=== PATIENT | male | born 1980 ===

== ENCOUNTER → 2022-07-25 09:20 | Outpatient (CLI) | payer OTHER, SELFPAY ==
--- NOTE | 2022-07-25 | DI.MRI.S_ITS ---
PROCEDURE: MR LUMBAR SPINE WO CON INDICATIONS: Radiculopathy, lumbar region TECHNIQUE: Noncontrast sagittal T1 spin echo and T2 fast echo, sagittal STIR, and T2 fast spin echo through the lumbar spine. In cases with scoliosis, additional coronal T2 fast spin echo may be performed. COMPARISON: [facility], MR, MR LUMBAR SPINE WITHOUT CONTRAST, 08/06/2021, 18:13. FINDINGS: Image quality: Excellent. Alignment and Curvature: Posterior fusion is present at L5-S1. There is good anatomic alignment. Bone Marrow: Marrow is of normal overall signal. No acute vertebral body compression fractures. Spinal Cord: Conus medullaris terminates at the L1-2 level. Visualized cord demonstrates normal signal and size. Paraspinous Soft Tissues: No paravertebral masses. T12-L1: No disc bulge, spinal stenosis or foraminal narrowing. L1-L2: No disc bulge, spinal stenosis or foraminal narrowing. Mild epidural lipomatosis is present. No interval change. L2-L3: Minimal disc bulge without spinal stenosis or foraminal narrowing. Epidural lipomatosis is present. L3-L4: No disc bulge, spinal stenosis or foraminal narrowing. Mild epidural lipomatosis is present. No interval change. L4-L5: Increased signal posteriorly within the disc consistent with annular fissure is present. No disc bulge, spinal stenosis or foraminal narrowing. No interval change. L5-S1: Interval postsurgical changes. Previous disc bulge is less prominent. There is [id number] bilateral foraminal narrowing slightly less prominent. IMPRESSION: Interval posterior fusion at L5-S1 with slightly less prominent appearance of bilateral foraminal narrowing at this level. Remainder of exam is stable. Dictated by: Emily Fishman M.D. on 07/25/2022 at 13:55 Approved by: Emily Fishman M.D. on 07/25/2022 at 13:59
== END ==
PROVIDERS: PCP Student in an Organized Health Care Education/Training Program; Referring Provider Student in an Organized Health Care Education/Training Program; Visit Provider Student in an Organized Health Care Education/Training Program
DX: M54.16 Radiculopathy, lumbar region (principal); Z98.1 Arthrodesis status; M48.061 Spinal stenosis, lumbar region without neurogenic claudication
CPT/HCPCS: 72148

== ENCOUNTER → 2022-11-07 14:17 | Outpatient (CLI) | payer OTHER, SELFPAY | PROVIDERS: Family Provider Student in an Organized Health Care Education/Training Program; PCP Student in an Organized Health Care Education/Training Program; Referring Provider Nurse Practitioner Family; Visit Provider Nurse Practitioner Family | DX: M54.16 Radiculopathy, lumbar region (principal) | CPT/HCPCS: 95886; 95910 ==

== ENCOUNTER → 2023-02-07 19:44 | Outpatient (CLI) | payer OTHER, SELFPAY ==
--- NOTE | 2023-02-07 | DI.MRI.S_ITS ---
P pole the ROCEDURE: MR LUMBAR SPINE WO CON INDICATIONS: Radiculopathy, lumbar region TECHNIQUE: Noncontrast sagittal T1 spin echo and T2 fast echo, sagittal STIR, and T2 fast spin echo through the lumbar spine. In cases with scoliosis, additional coronal T2 fast spin echo may be performed. COMPARISON: [facility], MR, MR LUMBAR SPINE WITH/WITHOUT CONTRAST, 08/08/2022, 7:12. [facility], CT, CT LUMBAR SPINE WITH CONTRAST, 08/08/2022, 0:47. [facility], MR, MR LUMBAR SPINE WO CON, 07/25/2022, 10:16. FINDINGS: Image quality: Excellent. Alignment and Curvature: There is normal bony alignment. Remote right hemilaminectomy and partial facetectomy at L5-S1 with posterior lateral naveen and pedicle screw fixation and interbody spacer placement. Bone Marrow: Marrow is of normal overall signal. No acute vertebral body compression fractures. Spinal Cord: Conus medullaris terminates at the L1-L2 level. Visualized cord demonstrates normal signal and size. Paraspinous Soft Tissues: No paravertebral masses. T12-L1: Normal appearance. L1-L2: Normal appearance. L2-L3: Normal appearance. L3-L4: Normal appearance. L4-L5: Mild facet hypertrophy. No canal stenosis or foraminal stenosis. L5-S1: Posterior decompression. Posterior lateral fusion and interbody spacer. No canal stenosis. No significant foraminal stenosis. IMPRESSION: 1. Expected appearance of postoperative level. No canal stenosis or significant foraminal stenosis. 2. Mild facet hypertrophy at L4-L5. 3. Otherwise unremarkable. No canal stenosis or foraminal stenosis. Dictated by: Jasen Gamboa M.D. on 02/10/2023 at 9:35 Approved by: Jasen Gamboa M.D. on 02/10/2023 at 9:41
== END ==
PROVIDERS: Family Provider Student in an Organized Health Care Education/Training Program; PCP Student in an Organized Health Care Education/Training Program; Referring Provider Orthopaedic Surgery; Visit Provider Orthopaedic Surgery
DX: M47.26 Other spondylosis with radiculopathy, lumbar region (principal); Z98.1 Arthrodesis status
CPT/HCPCS: 72148

== ENCOUNTER 2023-06-08 04:54 | Emergency (ER) | payer OTHER, SELFPAY ==
[2023-06-08] VITALS (9 sets, daily range): BP systolic 106–144; BP diastolic 72–98; PULSE 69–83; RESP 16; TEMP 36.6; O2SAT 97–99
--- NOTE | 2023-06-08 05:22 | DI.CT.S_ITS ---
PROCEDURE: CT HEAD/BRAIN WO CON INDICATIONS: debilitating migraine, htn TECHNIQUE: Noncontrast 4.5 mm thick angled axial sections acquired from the foramen magnum to the vertex, with coronal and sagittal reformats. For radiation dose reduction, the following was used: automated exposure control, adjustment of mA and/or kV according to patient size. COMPARISON: None. FINDINGS: Image quality: Diagnostic. CSF spaces: Basal cisterns are patent. No extra-axial fluid collections. Ventricles are normal in size and shape. Brain: No midline shift. No intracranial masses or hemorrhage. [place]-white matter interface is normal. Skull and face: Calvarium and visualized facial bones are intact, without suspicious lesions. Sinuses: Visualized sinuses and mastoids are clear. IMPRESSION: No acute intracranial pathology. No significant discrepancy with the shift mechanic radiology preliminary report. Dictated by: Tristen Buitrago M.D. on 06/08/2023 at 7:28 Approved by: Tristen Buitrago M.D. on 06/08/2023 at 7:29
--- NOTE | 2023-06-08 05:25 | ED.GENADULT ---
HPI - General Adult <Taylor Bird MD - Last Filed: 06/09/23 01:24> General Chief complaint: Hypertension Stated complaint: Dizzy, confused, weak, High BP Time Seen by Provider: 06/08/23 05:04 Source: patient Mode of arrival: Ambulatory History of Present Illness HPI narrative: 42-year-old male with history of prediabetes presents by private vehicle from home for lightheadedness and elevated blood pressure. Patient states ?I do not feel well?. He states that he had a horrible migraine earlier last night and went to bed. When he woke up his headache was better but the lightheadedness persisted. His significant other told him to measures blood pressure and it was high on his wrist cuff. Patient states that he saw his primary care doctor recently for elevated blood pressures but his doctor did not put him on any blood pressure medications because he is a shithead. Patient denies chest pain, shortness of breath, vertigo, vision changes, worst headache of life Related Data Previous Rx's Medication Instructions Recorded amlodipine 5 mg tablet 5 mg PO DAILY #30 tabs 06/08/23 Allergies Allergy/AdvReac Type Severity Reaction Status Date / Time Latex, Natural Rubber Allergy Verified 06/08/23 05:25 Review of Systems <Taylor Bird MD - Last Filed: 06/09/23 01:24> Review of Systems Narrative: See HPI Exam <Taylor Bird MD - Last Filed: 06/09/23 01:24> Initial Vital Signs Initial Vital Signs: Vital Signs Pulse Rate 79 06/08/23 05:10 Pulse Oximetry 98 06/08/23 05:10 Const: Awake, alert, eyes closed, no acute distress Cardiac: regular rate, regular rhythm RESP: unlabored, clear bilaterally, no wheezing GI: Soft, nontender, nondistended Skin: Warm, Dry, intact, no rashes Neuro: AO x3, CN II-XII grossly intact, moves all extremities <Taylor Roberson DO - Last Filed: 06/08/23 09:29> Initial Vital Signs Initial Vital Signs: Vital Signs Pulse Rate 79 06/08/23 05:10 Pulse Oximetry 98 06/08/23 05:10 Course <Taylor Bird MD - Last Filed: 06/09/23 01:24> Orders Ordered: Discontinued Medications Diphenhydramine HCl (Diphenhydramine 50 Mg/Ml Vial) 50 mg IV NOW ONE Stop: 06/08/23 05:22 Last Admin: 06/08/23 05:32 Dose: 50 mg Documented By: HUAN Sodium Chloride (Normal Saline 0.9%) 1,000 mls @ 1,000 mls/hr IV BOLUS ONE Stop: 06/08/23 06:20 Last Infusion: 06/08/23 06:24 Dose: Infused Documented By: Admin: 06/08/23 05:32 Dose: 1,000 mls/hr Documented By: HUAN Metoclopramide HCl (Metoclopramide 10 Mg/2 Ml Inj) 10 mg IV NOW ONE Stop: 06/08/23 05:22 Last Admin: 06/08/23 05:32 Dose: 10 mg Documented By: HUAN Vital Signs Vital signs: Vital Signs - 8 hr 06/08/23 05:10 06/08/23 05:11 06/08/23 05:30 Temperature 97.8 F Pulse Rate 79 83 82 Respiratory Rate 16 Blood Pressure 144/98 H Pulse Oximetry 98 98 99 Oxygen Delivery Method Room Air 06/08/23 05:30 06/08/23 06:02 06/08/23 06:59 Temperature Pulse Rate 72 70 Respiratory Rate Blood Pressure 132/95 H 110/72 Pulse Oximetry 97 97 Oxygen Delivery Method 06/08/23 07:00 06/08/23 07:00 06/08/23 07:30 Temperature Pulse Rate 72 Respiratory Rate Blood Pressure 110/72 106/72 Pulse Oximetry 97 Oxygen Delivery Method 06/08/23 07:30 06/08/23 07:34 06/08/23 07:39 Temperature Pulse Rate 69 72 Respiratory Rate 16 Blood Pressure Pulse Oximetry 97 99 Oxygen Delivery Method <Taylor Roberson DO - Last Filed: 06/08/23 09:29> Orders Ordered: Discontinued Medications Diphenhydramine HCl (Diphenhydramine 50 Mg/Ml Vial) 50 mg IV NOW ONE Stop: 06/08/23 05:22 Last Admin: 06/08/23 05:32 Dose: 50 mg Documented By: HUAN Sodium Chloride (Normal Saline 0.9%) 1,000 mls @ 1,000 mls/hr IV BOLUS ONE Stop: 06/08/23 06:20 Last Infusion: 06/08/23 06:24 Dose: Infused Documented By: Admin: 06/08/23 05:32 Dose: 1,000 mls/hr Documented By: HUAN Metoclopramide HCl (Metoclopramide 10 Mg/2 Ml Inj) 10 mg IV NOW ONE Stop: 06/08/23 05:22 Last Admin: 06/08/23 05:32 Dose: 10 mg Documented By: HUAN Vital Signs Vital signs: Vital Signs - 8 hr 06/08/23 05:10 06/08/23 05:11 06/08/23 05:30 Temperature 97.8 F Pulse Rate 79 83 82 Respiratory Rate 16 Blood Pressure 144/98 H Pulse Oximetry 98 98 99 Oxygen Delivery Method Room Air 06/08/23 05:30 06/08/23 06:02 06/08/23 06:59 Temperature Pulse Rate 72 70 Respiratory Rate Blood Pressure 132/95 H 110/72 Pulse Oximetry 97 97 Oxygen Delivery Method 06/08/23 07:00 06/08/23 07:00 06/08/23 07:30 Temperature Pulse Rate 72 Respiratory Rate Blood Pressure 110/72 106/72 Pulse Oximetry 97 Oxygen Delivery Method 06/08/23 07:30 06/08/23 07:34 06/08/23 07:39 Temperature Pulse Rate 69 72 Respiratory Rate 16 Blood Pressure Pulse Oximetry 97 99 Oxygen Delivery Method Medical Decision Making <Taylor Bird MD - Last Filed: 06/09/23 01:24> Lab Data 06/08/23 05:30 06/08/23 06:50 Labs: Lab Results 06/08/23 06/08/23 06/08/23 Range/Units 05:30 06:00 06:50 WBC 6.0 (4.5-11.0) X10^3/uL RBC 5.32 (4.5-5.9) X10^6/uL Hgb 14.7 (13.5-17.5) g/dL Hct 45.0 (41-53) % MCV 84.4 (80-100) fL MCH 27.5 (26-34) PG MCHC 32.6 (30-36) % RDW 14.1 (11.6-14.8) % Plt Count 164 (150-400) X10^3/uL Neut % (Auto) 48.1 L (50-75) % Lymph % (Auto) 37.2 (25-40) % [place] % (Auto) 9.6 (3-14) % Eos % (Auto) 4.1 H (2-4) % Baso % (Auto) 1.0 (0-2) % Neut # (Auto) 2900 (7624-9563) /uL Lymph # (Auto) 2200 (1501-9243) /uL [place] # (Auto) 600 (0-900) /uL Eos # (Auto) 200 (0-450) /uL Baso # (Auto) 100 (0-100) /uL Sodium 140 (137-145) mmol/L Potassium 3.7 (3.4-5.1) mmol/L Chloride 112 H (98-107) mmol/L Carbon Dioxide 25 (22-32) mmol/L BUN 15 (9-20) mg/dL Creatinine 1.13 (0.66-1.25) mg/dL Estimated GFR > 60 (>60) mL/min BUN/Creatinine Ratio 13.3 (6-22) Glucose 92 (70-100) mg/dL Calcium 8.5 (8.4-10.2) mg/dL Magnesium 2.1 (1.6-2.3) mg/dL Total Bilirubin 0.3 (0.2-1.3) mg/dL AST 27 (17-59) IU/L ALT 53 H (<50) IU/L Alkaline Phosphatase 100 (38-126) U/L Total Protein 6.0 L (6.3-8.2) g/dL Albumin 3.6 (3.5-5.0) g/dL Globulin 2.4 (1.7-4.1) g/dL Albumin/Globulin Ratio 1.5 (1.0-2.8) Urine Color Yellow Urine Appearance Clear Urine pH 5.0 (4.5-8.0) Ur Specific [place] >=1.030 H (1.000-1.035) Urine Protein Negative (Negative) Urine Glucose (UA) Negative (Negative) g/dL Urine Ketones Trace H (NEGATIVE) Urine Occult Blood Negative (Negative) Urine Nitrate Negative (Negative) Urine Bilirubin Negative (NEGATIVE) Urine Urobilinogen 1.0 (0.2) E.U./dL Ur Leukocyte Esterase Negative (NEGATIVE) Urine RBC None seen (0-5/HPF) Urine WBC None seen (0-5/HPF) Ur Squamous Epith Cells 0-1 /hpf (0-5/HPF) Urine Bacteria None seen (None) Urine Mucus 1+ H (Negative) Ur Culture Indicated? Cult not indicated Vol Urine Centrifuged 10ml (spun) MDM Narrative Medical decision making narrative: Hypertension and headache. Neurologically intact. Since this is a new headache for the patient a CT scan will be ordered. Due to hypertension blood work will be ordered to assess for end-organ damage. Headache cocktail ordered. CT imaging negative for acute findings. Patient was receiving headache cocktail. Laboratory work pending. Care of patient is signed out to Dr. Roberson at [id number] Karol 06/18/2023: 42-year-old male with a history of migraines, reported untreated hypertension who presents with headache. Patient states has history of migraines. Patient was signed out to myself by Dr. Bird. Patient seen and evaluated independently had head CT which was negative for acute change. Labs show white count of 6 hemoglobin of 14 platelets of 164, chemistries show a chloride of 112, ALT of 53 with otherwise normal electrolytes renal function and LFTs. UA shows trace ketones no signs of infection. EKG shows sinus rhythm, no acute ST changes appreciated. Rate of 93 UT 162 QRS of 92 QTC of 482. Patient received fluids, Reglan and on recheck patient is feeling much improved. He would like to return home. He did ask for a note in his chart that states that the blood pressure cuff here did correlate with his home cuff which he brought in. Per nursing it did correlate. He also had a script sent by Dr. Bird for his amlodipine. <Taylor Roberson, DO - Last Filed: 06/08/23 09:29> Lab Data Labs: Lab Results 06/08/23 06/08/23 06/08/23 Range/Units 05:30 06:00 06:50 WBC 6.0 (4.5-11.0) X10^3/uL RBC 5.32 (4.5-5.9) X10^6/uL Hgb 14.7 (13.5-17.5) g/dL Hct 45.0 (41-53) % MCV 84.4 (80-100) fL MCH 27.5 (26-34) PG MCHC 32.6 (30-36) % RDW 14.1 (11.6-14.8) % Plt Count 164 (150-400) X10^3/uL Neut % (Auto) 48.1 L (50-75) % Lymph % (Auto) 37.2 (25-40) % [place] % (Auto) 9.6 (3-14) % Eos % (Auto) 4.1 H (2-4) % Baso % (Auto) 1.0 (0-2) % Neut # (Auto) 2900 (3669-0529) /uL Lymph # (Auto) 2200 (9992-9378) /uL [place] # (Auto) 600 (0-900) /uL Eos # (Auto) 200 (0-450) /uL Baso # (Auto) 100 (0-100) /uL Sodium 140 (137-145) mmol/L Potassium 3.7 (3.4-5.1) mmol/L Chloride 112 H (98-107) mmol/L Carbon Dioxide 25 (22-32) mmol/L BUN 15 (9-20) mg/dL Creatinine 1.13 (0.66-1.25) mg/dL Estimated GFR > 60 (>60) mL/min BUN/Creatinine Ratio 13.3 (6-22) Glucose 92 (70-100) mg/dL Calcium 8.5 (8.4-10.2) mg/dL Magnesium 2.1 (1.6-2.3) mg/dL Total Bilirubin 0.3 (0.2-1.3) mg/dL AST 27 (17-59) IU/L ALT 53 H (<50) IU/L Alkaline Phosphatase 100 (38-126) U/L Total Protein 6.0 L (6.3-8.2) g/dL Albumin 3.6 (3.5-5.0) g/dL Globulin 2.4 (1.7-4.1) g/dL Albumin/Globulin Ratio 1.5 (1.0-2.8) Urine Color Yellow Urine Appearance Clear Urine pH 5.0 (4.5-8.0) Ur Specific [place] >=1.030 H (1.000-1.035) Urine Protein Negative (Negative) Urine Glucose (UA) Negative (Negative) g/dL Urine Ketones Trace H (NEGATIVE) Urine Occult Blood Negative (Negative) Urine Nitrate Negative (Negative) Urine Bilirubin Negative (NEGATIVE) Urine Urobilinogen 1.0 (0.2) E.U./dL Ur Leukocyte Esterase Negative (NEGATIVE) Urine RBC None seen (0-5/HPF) Urine WBC None seen (0-5/HPF) Ur Squamous Epith Cells 0-1 /hpf (0-5/HPF) Urine Bacteria None seen (None) Urine Mucus 1+ H (Negative) Ur Culture Indicated? Cult not indicated Vol Urine Centrifuged 10ml (spun) MDM Narrative Medical decision making narrative: Karol 06/18/2023: 42-year-old male with a history of migraines, reported untreated hypertension who presents with headache. Patient states has history of migraines. Patient was signed out to myself by Dr. Bird. Patient seen and evaluated independently had head CT which was negative for acute change. Labs show white count of 6 hemoglobin of 14 platelets of 164, chemistries show a chloride of 112, ALT of 53 with otherwise normal electrolytes renal function and LFTs. UA shows trace ketones no signs of infection. EKG shows sinus rhythm, no acute ST changes appreciated. Rate of 93 UT 162 QRS of 92 QTC of 482. Patient received fluids, Reglan and on recheck patient is feeling much improved. He would like to return home. He did ask for a note in his chart that states that the blood pressure cuff here did correlate with his home cuff which he brought in. Per nursing it did correlate. He also had a script sent by Dr. Bird for his amlodipine. Discharge Plan Departure Patient Disposition: Home Clinical Impression: Hypertension Instructions: DI for High Blood Pressure Activity Restrictions/Additional Instructions: Follow up with primary care, additional options has been provided. Nursing did correlate your home blood pressure cuff with our blood pressure machine and the numbers did correlate. Prescription for amlodipine has been included. You will need to follow up for refills. Prescription sent to [facility] in [place]. Please return for fevers, rapidly worsening symptoms, passing out, sudden vision changes, persistent vomiting, new numbness, tingling, weakness, difficulty with movement or other new or concerning changes. Prescriptions: New amlodipine 5 mg tablet 5 mg PO DAILY Qty: 30 0RF Referrals: Natalio Bryan DO [Primary Care Provider] - Stand Alone Forms: Patient Portal/API
[2023-06-08] MEDS: METOCLOPRAMIDE 10 MG/2 ML INJ IV (05:32)
[2023-06-08] MEDS: SODIUM CHLORIDE 0.9% 1,000 ML 1000 ML IV (05:32)
[2023-06-08] MEDS: diphenhydrAMINE 50 MG/ML VIAL IV (05:32)
[2023-06-08 05:46] LABS: Add Manual Diff / Slide Review NO; Basophils Absolute Auto 100 /uL (0-100); Eosinophils Absolute Auto 200 /uL (0-450); Eosinophils Percent Auto 4.1 % (2-4); Hemoglobin 14.7 g/dL (13.5-17.5); Lymphocytes Absolute Auto 2200 /uL (1100-4500); Lymphocytes Percent Auto 37.2 % (25-40); Mean Corpuscular HGB Conc 32.6 % (30-36); Mean Corpuscular Hemoglobin 27.5 PG (26-34); Mean Corpuscular Volume 84.4 fL (80-100); Monocytes Absolute Auto 600 /uL (0-900); Monocytes Percent Auto 9.6 % (3-14); Neutrophils Absolute Auto 2900 /uL (1500-7000); Neutrophils Percent Auto 48.1 % (50-75); Platelet Count 164 X10^3/uL (150-400); Red Blood Cell Count 5.32 X10^6/uL (4.5-5.9); Red Cell Distribution Width 14.1 % (11.6-14.8)
[2023-06-08 06:22] LABS: Appearance Urine UA CLEAR; Bilirubin Urine UA NEGATIVE (NEGATIVE); Color Urine UA YELLOW; Glucose Urine UA NEGATIVE (Negative); Ketones Urine UA TRACE (NEGATIVE); Leukocyte Esterase Urine UA NEGATIVE (NEGATIVE); Nitrite Urine UA NEGATIVE (Negative); Occult Blood Urine UA NEGATIVE (Negative); Protein Urine UA NEGATIVE (Negative); Specific Gravity Urine UA >=1.030 (1.000-1.035)
[2023-06-08 06:30] LABS: Bacteria Urine None Seen; Culture Indicated Urine Cult Not Indicated; Mucus Urine 1+ (Negative); RBC Urine None Seen (0-5/HPF); Squamous Epithelial Cell Urine 0-1 /HPF (0-5/HPF); Urine Volume 10mL (spun); WBC Urine None Seen (0-5/HPF)
[2023-06-08 07:17] LABS: Alanine Aminotransferase 53 IU/L (<50); Albumin 3.6 g/dL (3.5-5.0); Albumin Globulin Ratio 1.5 (1.0-2.8); Alkaline Phosphatase 100 U/L (38-126); Aspartate Aminotransferase 27 IU/L (17-59); BUN Creatinine Ratio 13.3 (6-22); Bilirubin Total 0.3 mg/dL (0.2-1.3); Blood Urea Nitrogen 15 mg/dL (9-20); Calcium 8.5 mg/dL (8.4-10.2); Carbon Dioxide 25 mmol/L (22-32); Chloride 112 mmol/L (98-107); Estimated Glomerular Filt Rate > 60 mL/min (>60); Globulin 2.4 g/dL (1.7-4.1); Glucose 92 mg/dL (70-100); HEMOLYSIS 15 (0-50); Magnesium 2.1 mg/dL (1.6-2.3); Potassium 3.7 mmol/L (3.4-5.1); Sodium 140 mmol/L (137-145)
== END 2023-06-08 07:41 | disposition home or self-care (01) ==
PROVIDERS: Emergency Medicine; Emergency Provider Emergency Medicine; Family Provider Student in an Organized Health Care Education/Training Program; PCP Student in an Organized Health Care Education/Training Program
DX: I10 Essential (primary) hypertension (principal); R07.9 Chest pain, unspecified
CPT/HCPCS: 36415; 70450; 80053; 81001; 83735; 85025; 93005; 96361; 96374; 96375; 99284; J1200; J2765

== ENCOUNTER 2023-06-25 11:54 | Emergency (ER) | payer OTHER, SELFPAY ==
--- NOTE | 2023-06-25 | DI.MRI.S_ITS ---
PROCEDURE: MR LUMBAR SPINE WO CON INDICATIONS: BACK PAIN TECHNIQUE: Noncontrast sagittal T1 spin echo and T2 fast echo, sagittal STIR, and T2 fast spin echo through the lumbar spine. In cases with scoliosis, additional coronal T2 fast spin echo may be performed. COMPARISON: [facility], CT, CT ABDOMEN PELVIS WITH CONTRAST, 08/15/2022, 13:12. [facility], MR, MR LUMBAR SPINE WITH/WITHOUT CONTRAST, 08/08/2022, 7:12. [facility], CT, CT LUMBAR SPINE WITH CONTRAST, 08/08/2022, 0:47. [facility], CR, XR LUMBAR SPINE 2 OR 3 VIEWS, 08/06/2022, 10:11. [facility], MR, MR LUMBAR SPINE WO CON, 07/25/2022, 10:16. [facility], MR, MR LUMBAR SPINE WO CON, 02/07/2023, 20:15. FINDINGS: Image quality: There is artifact associated with the metallic hardware. This examination is limited by involuntary motion artifact. Alignment and Curvature: There is normal bony alignment. Bone Marrow: Marrow is of normal overall signal. No acute vertebral body compression fractures. Spinal Cord: Conus medullaris terminates at the L1 level. Visualized cord demonstrates normal signal and size. Paraspinous Soft Tissues: No paravertebral masses. T12-L1: Normal appearance. L1-L2: Normal appearance. L2-L3: Normal appearance. L3-L4: Normal appearance. L4-L5: The disc height and disk signal are well-preserved. Mild generalized disc bulge is seen. There is a superimposed central disc protrusion. Mild to moderate facet hypertrophy is seen. Mild to moderate bilateral neural foraminal narrowing is seen. No central canal narrowing is seen. Are similar L5-S1: Postoperative changes are seen at this level, with bilateral pedicle screws and vertical fixation rods. There is a disc spacer seen at this level. Moderate generalized disc bulge is seen. There is moderate right-sided and no left-sided neural foraminal narrowing. No central canal narrowing is seen. IMPRESSION: No acute abnormality is seen. Stable MRI demonstrating lower lumbar spine postoperative and degenerative change. Dictated by: Kit Turner M.D. on 06/25/2023 at 17:35 Approved by: Kit Turner M.D. on 06/25/2023 at 17:38
[2023-06-25 11:59] VITALS: BP 146/81; PULSE 99; RESP 18; TEMP 36.9; O2SAT 96; BMI 28.1
[2023-06-25] MEDS: KETOROLAC 30 MG/ML VIAL IM (17:01)
[2023-06-25 17:03] VITALS: BP 122/73; PULSE 71; RESP 16; O2SAT 98
--- NOTE | 2023-06-25 17:37 | ED_ITS ---
HPI - Back Pain/Injury General Chief Complaint: Back Pain/Injury Stated Complaint: back pain Time Seen by Provider: 06/25/23 16:29 Source: patient History of Present Illness HPI Narrative: Patient arrives here from work for complaints of tingling to the ring and little fingers of each hand as well as tingling to the right leg. And tingling to the left heel. Patient also complains of pain and weakness to the left shoulder when trying to abduct left arm above the level. Patient has history lumbar surgery year ago with Dr. Gavin kent at [facility]. Since then he continues to have discomfort in the legs. The discomfort today in the leg does not new. He has seen a urologist for urological problems since the surgery. He has never had imaging or procedures on his cervical spine. Patient denies any chest pain abdominal pain headache for any dizziness. Patient was at work today, he is in the [employer], he was doing heavy lifting or pulls that were attached to sand. The symptoms occurred. Feeling better now in the arms but still has residual tingling to the right leg and left heel. He states he has baseline discomfort with rotating his head to the right very limited and a causes pain. Lifting both arms up and turning his head to the right makes his arm pain worse. He is on Neurontin 800 mg 3 times a day as well as meloxicam Related Data Previous Rx's Medication Instructions Recorded amlodipine 5 mg tablet 5 mg PO DAILY #30 tabs 06/08/23 methylprednisolone 4 mg tablets in See Rx Instructions PO .COMPLEX 06/25/23 a dose pack (Medrol (Sharif)) #21 ea Allergies Allergy/AdvReac Type Severity Reaction Status Date / Time Latex, Natural Rubber Allergy Verified 06/08/23 05:25 Review of Systems Review of Systems Narrative: GENERAL: negative chills, fatigue, malaise, fever, sweats. HEENT: negative sinus pain, ear pain, sore throat RESPIRATORY: negative dyspnea, cough CARDIOVASCULAR: negative chest pain, palpitations GASTROINTESTINAL: negative nausea, vomiting, abdominal pain : negative dysuria, frequency, hematuria MUSCULOSKELETAL: negative muscle or bony pain SKIN: negative rash, skin lesions NEUROLOGIC: Positive weakness, positive numbness and tingling ROS Unobtainable: All systems reviewed & are unremarkable except as noted in HPI and below Patient History Social History Smoking Status: Never smoker Smoking Status: Never smoker Substance Use Type: does not use Exam Narrative Exam Narrative: GENERAL: in no distress, not toxic not dyspneic HEAD: Normocephalic. EYES: Pupils equal round ENT: Mucous membranes moist. NECK: Trachea midline. Limited range of motion with rotating his head to the right. Causes pain to the neck as well as tingling to his right hand CARDIOVASCULAR: Regular rate and rhythm RESPIRATORY: Clear to auscultation. Breath sounds equal bilaterally. No wheezes, rales, or rhonchi. GASTROINTESTINAL: Abdomen soft, non-tender EXTREMITIES: No gross deformities. Examination left upper extremity. Able to abduct to 90? with shoulder however to painful try to elevate above his head. Causes left neck pain when when he attempts to do this. BACK: No flank tenderness. Surgical scars noted. Lower lumbar spine. No midline tenderness or step-off. There is mild spasms to the bilateral paralumbar muscles. Able to do side NEURO: AOx4. Clear speech no facial droop fast exam is negative. Strong equal vacuum technician negative pronator drift. Steady self gait, steady Romberg. Strong bilateral patellar reflexes and ankle flexion and extension. Light touch intact to bilateral fingers and hands. Particularly the ring fingers and pinky fingers. No pain with bilateral straight leg raises. SKIN: Warm and dry PSYCH: Not anxious, is cooperative Initial Vital Signs Initial Vital Signs: Vital Signs Temperature 98.5 F 06/25/23 11:59 Pulse Rate 99 H 06/25/23 11:59 Respiratory Rate 18 06/25/23 11:59 Blood Pressure 146/81 H 06/25/23 11:59 Pulse Oximetry 96 06/25/23 11:59 Oxygen Delivery Method Room Air 06/25/23 11:59 Course Orders Ordered: Discontinued Medications Ketorolac Tromethamine (Ketorolac 30 Mg/Ml Vial) 30 mg IM NOW ONE Stop: 06/25/23 16:49 Last Admin: 06/25/23 17:01 Dose: 30 mg Documented By: JOSE CRUZ Prednisone (Prednisone 20 Mg Tablet) 60 mg PO NOW ONE Stop: 06/25/23 17:49 Last Admin: 06/25/23 18:42 Dose: 60 mg Documented By: JOSE CRUZ Vital Signs Vital signs: Vital Signs - 8 hr 06/25/23 11:59 06/25/23 17:03 Temperature 98.5 F Pulse Rate 99 H 71 Respiratory Rate 18 16 Blood Pressure 146/81 H 122/73 Pulse Oximetry 96 98 Oxygen Delivery Method Room Air Room Air MDM - Back Pain/Injury Imaging Data MRI cervical spine: Radiologist's Impression: [address] [address] Magnetic Resonance Report Signed Patient: Dick Beltre MR#: [id number] : 1980 Acct:[id number] Age/Sex: 42 / M Date of Service: 06/25/23 Loc: ED Accession Number: [id number] Procedure: MR cervical spine wo con Ordering Provider: Gavin Avila MD PROCEDURE: MR CERVICAL SPINE WO CON INDICATIONS: Neck pain/arm weakness/hand tingling TECHNIQUE: Noncontrast sagittal T1 spin echo and T2 fast spin echo, sagittal STIR, foraminal oblique sagittal T2 fast spin echo, and axial gradient echo or T2 fast spin echo through the cervical spine. COMPARISON: None. FINDINGS: Image quality: Diagnostic Alignment and Curvature: There is overall straightening of the normal cervical lordosis. Minimal anterolisthesis can be seen at C4-C5 and C5-C6 Bone Marrow: Marrow demonstrates normal overall signal. Spinal Cord: Visualized spinal cord has normal size and signal. No cerebellar tonsillar herniation. Paraspinous Soft Tissues: No paravertebral masses. Prevertebral soft tissues are normal in thickness. C2-C3: No significant abnormality is seen. C3-C4: Mild loss of disc height is seen. Loss of disc signal is seen. A mild degree of generalized disc osteophyte complex is seen. Mild facet joint hypertrophy is seen. There is moderate right-sided and [id number] left-sided neural foraminal narrowing. No significant central canal narrowing is seen. C4-C5: Mild loss of disc height is seen. Loss of disc signal is seen. A mild degree of generalized disc osteophyte complex is seen. Mild to moderate facet hypertrophy is seen. Moderate bilateral neural foraminal narrowing is seen. No central canal narrowing is seen. C5-C6: Moderate loss of disc height is seen. Loss of disc signal is seen. Moderate disc osteophyte complex is seen, with a central/right disc osteophyte protrusion. Mild facet joint hypertrophy is seen. Moderate bilateral neural foraminal narrowing is seen. Mild to moderate central canal narrowing is seen, with a mild degree of mass effect upon the ventral spinal cord. C6-C7: The disc height and disk signal are relatively well-preserved. A mild to moderate degree of generalized disc osteophyte complex is seen. Mild facet joint hypertrophy is seen. There is at least moderate right-sided and moderate left- sided neural foraminal narrowing. Minimal central canal narrowing is seen. C7-T1: Mild loss of disc height is seen. Loss of disc signal is seen. Moderate generalized disc osteophyte complex is seen. Moderate facet joint hypertrophy is seen. There is moderate left-sided and [id number] right-sided neural foraminal narrowing. No central canal narrowing is seen. IMPRESSION: Multiple levels of cervical spine degenerative change can be seen, which are overall worst at the C5-C6 level. Dictated by: Kit Turner M.D. on 06/25/2023 at 17:32 Approved by: Kit Turner M.D. on 06/25/2023 at 17:35 Extremity x-ray #1: Radiologist's Impression: [address] [address] XRay Report Signed Patient: Dick Beltre MR#: [id number] : 1980 Acct:[id number] Age/Sex: 42 / M Date of Service: 06/25/23 Loc: ED Accession Number: [id number] Procedure: XR shoulder LT min 2V Ordering Provider: Gavin Avila MD PROCEDURE: XR SHOULDER LT MIN 2V INDICATIONS: Pain/injury TECHNIQUE: 3 views of the shoulder were acquired. COMPARISON: None. FINDINGS: Bones: No fractures or dislocations. No suspicious bony lesions. Visualized ribs appear intact. Soft tissues: No suspicious soft tissue calcifications. IMPRESSION: No acute bony abnormality. If there are persistent symptoms or clinical suspicion for pathology, then repeat radiographs or advanced imaging (CT or MRI) may be considered for further evaluation. Dictated by: Tristen Buitrago M.D. on 06/25/2023 at 19:18 Approved by: Tristen Buitrago M.D. on 06/25/2023 at 19:19 MRI lumbar spine: Radiologist's Impression: [address] [address] Magnetic Resonance Report Signed Patient: Dick Beltre MR#: [id number] : 1980 Acct:[id number] Age/Sex: 42 / M Date of Service: 06/25/23 Loc: ED Accession Number: [id number] Procedure: MR lumbar spine wo con Ordering Provider: Gavin Avila MD PROCEDURE: MR LUMBAR SPINE WO CON INDICATIONS: BACK PAIN TECHNIQUE: Noncontrast sagittal T1 spin echo and T2 fast echo, sagittal STIR, and T2 fast spin echo through the lumbar spine. In cases with scoliosis, additional coronal T2 fast spin echo may be performed. COMPARISON: [facility], CT, CT ABDOMEN PELVIS WITH CONTRAST, 08/15/2022, 13:12. [facility], MR, MR LUMBAR SPINE WITH/WITHOUT CONTRAST, 08/08/2022, 7:12. [facility], CT, CT LUMBAR SPINE WITH CONTRAST, 08/08/2022, 0:47. [facility], CR, XR LUMBAR SPINE 2 OR 3 VIEWS, 08/06/2022, 10:11. [facility], MR, MR LUMBAR SPINE WO CON, 07/25/2022, 10:16. [facility], MR, MR LUMBAR SPINE WO CON, 02/07/2023, 20:15. FINDINGS: Image quality: There is artifact associated with the metallic hardware. This examination is limited by involuntary motion artifact. Alignment and Curvature: There is normal bony alignment. Bone Marrow: Marrow is of normal overall signal. No acute vertebral body compression fractures. Spinal Cord: Conus medullaris terminates at the L1 level. Visualized cord demonstrates normal signal and size. Paraspinous Soft Tissues: No paravertebral masses. T12-L1: Normal appearance. L1-L2: Normal appearance. L2-L3: Normal appearance. L3-L4: Normal appearance. L4-L5: The disc height and disk signal are well-preserved. Mild generalized disc bulge is seen. There is a superimposed central disc protrusion. Mild to moderate facet hypertrophy is seen. Mild to moderate bilateral neural foraminal narrowing is seen. No central canal narrowing is seen. Are similar L5-S1: Postoperative changes are seen at this level, with bilateral pedicle screws and vertical fixation rods. There is a disc spacer seen at this level. Moderate generalized disc bulge is seen. There is moderate right-sided and no left-sided neural foraminal narrowing. No central canal narrowing is seen. IMPRESSION: No acute abnormality is seen. Stable MRI demonstrating lower lumbar spine postoperative and degenerative change. Dictated by: Kit Turner M.D. on 06/25/2023 at 17:35 Approved by: Kit Turner M.D. on 06/25/2023 at 17:[address] [facility] Narrative Medical decision making narrative: Patient arrives here from work for complaints of tingling to the ring and little fingers of each hand as well as tingling to the right leg. And tingling to the left heel. Patient also complains of pain and weakness to the left shoulder when trying to abduct left arm above the level. Patient has history lumbar surgery year ago with Dr. Gavin kent at [facility]. Since then he continues to have discomfort in the legs. The discomfort today in the leg does not new. He has seen a urologist for urological problems since the surgery. He has never had imaging or procedures on his cervical spine. Patient denies any chest pain abdominal pain headache for any dizziness. Patient was at work today, he is in the [employer], he was doing heavy lifting or pulls that were attached to sand. The symptoms occurred. Feeling better now in the arms but still has residual tingling to the right leg and left heel. He states he has baseline discomfort with rotating his head to the right very limited and a causes pain. Lifting both arms up and turning his head to the right makes his arm pain worse. He is on Neurontin 800 mg 3 times a day as well as meloxicam After history and exam MRI cervical spine Toradol x-ray left shoulder [facility] Medical records reviewed: ER visit here 2 weeks ago Differential considered: Includes but not limited to cervical radiculopathy, degenerative disc disease of cervical spine, left shoulder strain, rotator cuff injury, stroke, lumbar radiculopathy, lumbar degenerative disc disease, lumbar strain Lab Test results independently reviewed as above. Pertinent findings: No blood work indicated this time. Imaging studies independently reviewed: MRI cervical spine x-ray left shoulder Consultations: None indicated at this time Treatments: Toradol prednisone Re-evaluations: Reviewed with patient treatment plan. He agrees. Work note will be provided. Short course of steroids will be provided. He does have establish spine provider. He needs to call tomorrow for office appointment for re-evaluation. Discussion: Appropriate for discharge home exam is reassuring. Patient has established spine provider. Patient has already established medications for his spine including Neurontin and meloxicam. Work note will be provided. Diagnosis: Cervical radiculopathy, lumbar radiculopathy 6:00 p.m.. Sign out to Dr. Bird, MRI pending results as well as x-ray left shoulder Discharge Plan Departure Patient Disposition: Home Clinical Impression: Acute back pain with radiculopathy, Cervical radiculopathy Strain of lumbar region Qualifiers: Encounter type: initial encounter Qualified Code(s): S39.012A - Strain of muscle, fascia and tendon of lower back, initial encounter Instructions: DI for Cervical Radiculopathy, DI for Back Pain With Sciatica, DI for Lumbar Radiculopathy Activity Restrictions/Additional Instructions: Your imaging studies are reassuring today. No blood was needed. You will need to call your spine surgeon office tomorrow for office re-evaluation of your symptoms and review of the MRI results of today. Continue steroid pack tomorrow. Continue your home medications. Return if worse if any questions or concerns. Work note has been provided for you. Prescriptions: New methylprednisolone [Medrol (Sharif)] 4 mg tablets,dose pack See Rx Instructions .ROUTE .COMPLEX Qty: 21 0RF Rx Instructions: orally per package directions No Action amlodipine 5 mg tablet 5 mg PO DAILY Qty: 30 0RF Referrals: Natalio Bryan DO [Primary Care Provider] - Stand Alone Forms: Patient Portal/API, Work Release Note
--- NOTE | 2023-06-25 17:44 | DI.RAD.S_ITS ---
PROCEDURE: XR SHOULDER LT MIN 2V INDICATIONS: Pain/injury TECHNIQUE: 3 views of the shoulder were acquired. COMPARISON: None. FINDINGS: Bones: No fractures or dislocations. No suspicious bony lesions. Visualized ribs appear intact. Soft tissues: No suspicious soft tissue calcifications. IMPRESSION: No acute bony abnormality. If there are persistent symptoms or clinical suspicion for pathology, then repeat radiographs or advanced imaging (CT or MRI) may be considered for further evaluation. Dictated by: Tristen Buitrago M.D. on 06/25/2023 at 19:18 Approved by: Tristen Buitrago M.D. on 06/25/2023 at 19:19
[2023-06-25] MEDS: predniSONE 20 MG TABLET 60 MG PO (18:42)
[2023-06-25 19:27] VITALS: BP 147/92; PULSE 77; RESP 18; O2SAT 97
== END 2023-06-25 19:46 | disposition home or self-care (01) ==
PROVIDERS: Emergency Provider Emergency Medicine; Family Provider Student in an Organized Health Care Education/Training Program; PCP Student in an Organized Health Care Education/Training Program
DX: M54.16 Radiculopathy, lumbar region (principal); M54.13 Radiculopathy, cervicothoracic region; S39.012A Strain of muscle, fascia and tendon of lower back, initial encounter
CPT/HCPCS: 72141; 72148; 73030; 96372; 99283; J1885

== ENCOUNTER → 2023-08-12 16:20 | Outpatient (CLI) | payer OTHER, SELFPAY ==
--- NOTE | 2023-08-12 16:26 | DI.RAD.S_ITS ---
PROCEDURE: XR LUMBAR SPINE 2-3V INDICATIONS: SPONDYLOSIS TECHNIQUE: 3 views of the lumbar spine were acquired. COMPARISON: [facility], MR, MR LUMBAR SPINE WO CON, 06/25/2023, 17:52. MR, MR LUMBAR SPINE WO CON, 02/07/2023, 20:15. FINDINGS: Bones: 5 [id number] vertebrae are present. Discectomy and posterior fusion at L5-S1. There is normal bony alignment. No vertebral body compression fractures. No suspicious bony lesions. Soft tissues: Overlying bowel gas pattern is normal. No suspicious soft tissue calcifications. IMPRESSION: 1. No acute bony abnormality. 2. Discectomy and posterior fusion. Dictated by: Yakelin Badillo M.D. on 08/12/2023 at 17:01 Approved by: Yakelin Badillo M.D. on 08/12/2023 at 17:02
[2023-08-12 18:10] LABS: Appearance Urine UA CLEAR; Bilirubin Urine UA NEGATIVE (NEGATIVE); Color Urine UA YELLOW; Glucose Urine UA NEGATIVE (Negative); Ketones Urine UA NEGATIVE (NEGATIVE); Leukocyte Esterase Urine UA NEGATIVE (NEGATIVE); Nitrite Urine UA NEGATIVE (Negative); Occult Blood Urine UA NEGATIVE (Negative); Protein Urine UA TRACE (Negative); Specific Gravity Urine UA >=1.030 (1.000-1.035)
[2023-08-12 18:39] LABS: Bacteria Urine None Seen; Hyaline Casts Urine 1-5/LPF; RBC Urine 0-1/HPF (0-5/HPF); Squamous Epithelial Cell Urine 0-1 /HPF (0-5/HPF); Urine Volume 10mL (spun); WBC Urine 0-1/HPF (0-5/HPF)
[2023-08-12 18:40] LABS: Culture Indicated Urine Cult Not Indicated; Mucus Urine 1+ (Negative)
[2023-08-12 18:57] LABS: Thyroid Stimulating Hormone 2.56 uIU/mL (0.47-4.68)
== END ==
PROVIDERS: Family Provider Student in an Organized Health Care Education/Training Program; PCP Student in an Organized Health Care Education/Training Program; Referring Provider Chiropractor; Visit Provider Chiropractor
DX: E03.9 Hypothyroidism, unspecified (principal); M47.9 Spondylosis, unspecified; R32 Unspecified urinary incontinence; Z98.1 Arthrodesis status; Z98.890 Other specified postprocedural states
CPT/HCPCS: 36415; 72100; 81001; 84443